=== PATIENT | male | born 1995 | race Caucasian/White ===

== ENCOUNTER 2016-11-14 22:03 | Inpatient (IN) | payer OTHER ==
[~2016-11-14] VITALS: Ht 188 cm; Wt 84.4 kg
[2016-11-14 23:31] LABS: MEAN CORPUSCULAR HGB CONC 34.5 g/dl (32.0-36.5); RED CELL DISTRIBUTION WIDTH 11.9 % (11.5-14.5); WHITE BLOOD COUNT 6.2 K/mm3 (4.0-10.0)
[2016-11-14 23:54] LABS: METHADONE URINE NEGATIVE (NEGATIVE)
[2016-11-15] LABS: ALBUMIN/GLOBULIN RATIO 1.14 (1.00-1.93); ALKALINE PHOSPHATASE 81 U/L (45-117); ALT/SGPT 18 U/L (12-78); ANION GAP 4 MEQ/L (8-16); AST/SGOT 14 U/L (15-37); BILIRUBIN,DIRECT 0.3 MG/DL (0.0-0.2); BILIRUBIN,TOTAL 1.2 MG/DL (0.2-1.0); BLOOD UREA NITROGEN 17 MG/DL (7-18); CALCIUM LEVEL 9.2 MG/DL (8.5-10.1); CARBON DIOXIDE LEVEL 32 MEQ/L (21-32); CHLORIDE LEVEL 105 MEQ/L (98-107); CREATININE FOR GFR 0.96 MG/DL (0.70-1.30); GLUCOSE, FASTING 86 MG/DL (70-105); POTASSIUM SERUM 4.1 MEQ/L (3.5-5.1); SODIUM LEVEL 141 MEQ/L (136-145); TOTAL PROTEIN 7.5 GM/DL (6.4-8.2)
[2016-11-15] MEDS ORDERED: MAALOX 30 ML SUSP *UDC PO PRN (00:45)
[2016-11-15] MEDS ORDERED: traZODone 50 MG TAB PO PRN (00:45)
[2016-11-15] MEDS ORDERED: MOM 30ML SUSPENSION UDC PO PRN (00:45)
[2016-11-15] MEDS ORDERED: ACETAMINOPHEN TAB 650MG DOSE (2X325MG) PO PRN (00:45)
[2016-11-15] MEDS ORDERED: MOBI7.5T10 PO (00:50)
[2016-11-15] MEDS ORDERED: CYCL5TA PO (00:50)
[2016-11-15 01:47] VITALS: BP 136/73
[2016-11-15] MEDS ORDERED: SERTRALINE HCL 50 MG TAB PO SCH (09:00)
--- NOTE | 2016-11-15 10:29 | HPEPDOC ---
Medical History and Physical Date of Admission Nov 15, 2016 at 00:35 History and Physical PCP: [facility] ATTENDING: Dr. Leonard Walls HPI: 21 yo M admitted to [facility] for depression not otherwise specified, being medically examined today. No acute medical complaints today. Patient states he has chronic low back pain however he states his pain is controlled at this time. He denies previous injury. Denies any fevers, chills, weakness, fatigue, VAIL, CP, SOB, cough, palpitations, abdominal pain, N/V/D or changes in bowel or bladder habits. PMHx: Chronic back pain. Controlled Asthma as child History of nasal fracture status post skateboard injury Bilateral ankle fracture. Football injury. Left wrist fracture as child. Right hand fracture 8 status post fall/hitting objects ODD ADD PSHX: EGD 13 years old. Unremarkable per patient. Right knee, metal removed. 08/09 SOCHX: Resides in: [place] Marital Status: Single Kids: None Employment: Active duty Tobacco use: Denies ETOH: Denies Illicit Drugs: Denies IV Drug Use: Denies Tattoos done unprofessionally: Denies FAMHX: Patient is adopted. Adoptive mother. Thyroid cancer Adoptive father. History of anemia Mother: Alive, history of bipolar disorder, substance use Father: Unknown Siblings: 4 half sisters, half brother Alive, history of autism. Children: None Unexpected deaths due to medical reasons: None. ROS: As noted in HPI, otherwise 11pt ROS of systems reviewed and remarkable only for chronic low back pain which she states is controlled. PE: GEN: 21 yo M, appears stated age. Well-nourished, well developed. No acute distress. Alert and oriented x 3. Pleasant, interactive. HEENT: Normocephalic, atraumatic. Pupils are equal, round, and reactive to light. Extraocular movements are intact. No nystagmus appreciated. Sclera are nonicteric. Conjunctiva without injection. Nose midline. Nasal turbinates without bogginess. EACs both patent BL. TMs both visualized and lucio with good cone of light, no bulging or erythema. No facial asymmetry. Moist mucous membranes. Dentition fair. Pharynx pink and moist, no cobblestoning. Neck supple , trachea midline. No lymphadenopathy or thyromegaly appreciated. CHEST: Regular rate and rhythm, +S1, +S2 LUNGS: Clear to auscultation bilaterally. No wheezes, rales, or rhonchi. Breathing appears symmetric and easy. Patient is speaking in full sentences. No accessory muscle use. ABD: Round, soft, non-tender, non-distended. +Bowel sounds throughout. No rebound or guarding. No costovertebral angle tenderness. EXT: Pulses 2+ bilaterally dorsalis pedis and radial. No lower extremity edema appreciated. SKIN: [place], dry, warm. Capillary refill <2sec. No rashes. NEURO: Alert and oriented x 3. Cranial nerves III-XII are intact. No focal deficits appreciated. EKG: Pending. A&P: 21 yo M admitted to [facility] for depression not otherwise specified 1. Psych. Plan per Psychiatry. Obtain baseline EKG to assure the safety of psychiatric medications as they can prolong the QT interval. 2. Chronic low back pain. Medication reconciliation is pending. Confirm doses of Flexeril and Mobic. Continue outpatient regimen. Patient states pain is controlled. Follow up with PCP at discharge. 3.Follow up with PCP on discharge. 4. Staff member Ed present throughout exam. Vital Signs Vital Signs Date Time Temp Pulse Resp B/P Pulse Ox O2 Delivery O2 Flow Rate FiO2 11/15/16 01:47 97.6 53 20 136/73 98 Room Air Laboratory Data Labs 24H Laboratory Tests 2 11/14/16 23:19: Acetaminophen Level < 2.0L, Aspartate Amino Transf (AST/SGOT) 14L, Alanine Aminotransferase (ALT/SGPT) 18, Alkaline Phosphatase 81, Total Bilirubin 1.2H, Direct Bilirubin 0.3H, Albumin 4.0, Albumin/Globulin Ratio 1.14, Anion Gap 4L, Calcium Level 9.2, Ethyl Alcohol Level < 0.003, Salicylates Level < 1.7L, Thyroid Stimulating Hormone (TSH) 2.080, Total Protein 7.5, Urine Amphetamines Screen NEGATIVE, Urine Benzodiazepines Screen NEGATIVE, Urine Opiates Screen NEGATIVE, Urine Barbiturates Screen NEGATIVE, Urine Cannabinoids Screen NEGATIVE , Urine Cocaine Metabolite Screen NEGATIVE, Urine Methadone Screen NEGATIVE, Urine Phencyclidine Screen NEGATIVE CBC/BMP Laboratory Tests 11/14/16 23:19 Red Blood Count 4.92, Mean Corpuscular Volume 84.0, Mean Corpuscular Hemoglobin 29.0, Mean Corpuscular Hemoglobin Concent 34.5, Red Cell Distribution Width 11.9 Home Medications Scheduled Meloxicam (Mobic) 7.5 Mg Tab Unknown Dose PO QHS WITH FOOD Scheduled PRN Cyclobenzaprine HCl (Cyclobenzaprine HCl) 5 Mg Tab Unknown Dose PO QHS PRN PRN MUSCLE SPASMS Allergies Coded Allergies: Iodine (Verified Allergy, Severe, 11/14/16) Shellfish Allergy (Verified Allergy, Severe, 11/14/16) Franci Modi Nov 15, 2016 10:29
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
[2016-11-15 18:00] VITALS: BP 113/60
[2016-11-16 06:41] VITALS: BP 128/67
[2016-11-16] MEDS ORDERED: OXAZEPAM 10 MG CAP PO ONE (16:15)
--- NOTE | 2016-11-16 16:40 | IPNPDOC ---
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 HAM-A: 1- ANXIOUS MOOD Severe [3] 2- TENSION Severe [3] 3- FEARS Mild [1] 4- INSOMNIA Mild [1] 5- INTELLECTUAL Moderate [2] 6- DEPRESSED MOOD Moderate [2] 7- SOMATIC (muscular) Moderate [2] 8- SOMATIC (sensory) Mild [1] 9- CARDIOVASCULAR SYMPTOMS Mild [1] 10- RESPIRATORY SYMPTOMS Not present [0] 11- GASTROINTESTINALS SYMPTOMS Not present [0] 12- GENITOURINARY SYMPTOMS Not present [0] 13- AUTONOMIC SYMPTOMS Not present [0] 14- BEHAVIOUR AT INTERVIEW Moderate [2] ? HAM-A Score (of 56 points possible) 18 HAM-D: DEPRESSED MOOD Absent [0] FEELINGS OF GUILT Ideas of guilt or rumination over past errors or sinful deeds [2] SUICIDE Absent [0] INSOMNIA EARLY Complaints of nightly difficulty falling asleep [2] INSOMNIA MIDDLE No difficulty [0] INSOMNIA LATE No difficulty [0] WORK AND ACTIVITIES Loss of interest in activity hobbies or work [2] RETARDATION: PSYCHOMOTOR Normal speech and thought [0] AGITATION Playing with hands, hair, obvious restlessness [2] ANXIETY: PSYCHOLOGICAL Moderate [2] ANXIETY: SOMATIC Moderate [2] SOMATIC SYMPTOMS: GASTROINTESTINAL None [0] SOMATIC SYMPTOMS: GENERAL Any clear-cut symptom [2] GENITAL SYMPTOMS Absent [0] HYPOCHONDRIASIS Preoccupation with health [2] LOSS OF WEIGHT (rating method) Rating by history LOSS OF WEIGHT (result) No weight loss [0] INSIGHT Acknowledges illness but attributes cause to bad food, overwork, virus, need for rest, etc. [1] PARANOID SYMPTOMS None DIURNAL VARIATION Worse in P.M. Elder the severity of the variation Mild DEPERSONALIZATION AND DEREALIZATION Absent OBSESSIONAL & COMPULSIVE SYMPTOMS Absent ? Score 17 ? Assessment MODERATE DEPRESSION VITAL SIGNS: See below. NEW TEST RESULTS: See below CURRENT MEDICATIONS: See below. MENTAL STATUS EXAMINATION: General: Well dressed with good hygiene Speech: Spontaneous and fluid Thought processes: Linear and logical Thought content: Perseverates on anxiety and somatic symptoms Abstract reasoning, and computation: Intact Description of associations: Intact Description of abnormal or psychotic thoughts:Denies any suicidal or homicidal ideation. Denies any auditory or visual hallucinations. Does not appear to be responding to internal stimuli. Does not appear to be endorsing any bizarre or paranoid ideation. Judgment: Fair Insight: Improving Orientation: Alert and orientated 3 Recent and remote memory: Intact Attention span and concentration: Intact Fund of knowledge: Adequate Mood: "Bad" Affect: Anxious and dysphoric DIAGNOSES: 1. PTSD, acute. 2. Borderline personality disorder. ASSESSMENT: Improving MANAGEMENT PLAN: Medications: Start oxazepam 10 mg every 4 hours as needed for anxiety with 1 dose now Psychotherapy: Encourage group attendance Social: IOP for outpatient Misc: Emails liaison about med board process for patient as he was interested in knowing how that might go about Disposition: The patient will need of further inpatient stay to address severe anxiety and medication titration. TIME SPENT: 25 minutes. Vital Signs Vital Signs Date Time Temp Pulse Resp B/P (MAP) Pulse Ox O2 Delivery O2 Flow Rate FiO2 11/16/16 08:47 Room Air 11/16/16 06:41 99.9 57 18 128/67 (87) 11/15/16 01:47 98 Current Medications Current Medications Acetaminophen (Tylenol Tab) 650 mg Q6HP PRN PO HEADACHE or DISCOMFORT; Start at 00:45; Stop 12/15/16 at 00:44 Al Hydrox/Mg Hydrox/Simethicone (Mylanta) 30 ml Q4HP PRN PO HEARTBURN/ INDIGESTION; Start 11/15/16 at 00:45; Stop 12/15/16 at 00:44 Home Med (Med Rec Complete!) ASDIRECTED XX ; Start 11/15/16 at 01:00; Stop at 01:28; Status DC Magnesium Hydroxide (Milk Of Magnesia) 30 ml DAILYPRN PRN PO CONSTIPATION; Start 11/15/16 at 00:45; Stop 12/15/16 at 00:44 Oxazepam (Serax) 10 mg Q4HP PRN PO anxiety, agitation, insomnia; Start at 16:15; Stop 11/23/16 at 16:14 Sertraline HCl (Zoloft) 50 mg DAILY PO ; Start 11/15/16 at 09:00; Stop 11/15/16 at 15:05; Status DC Trazodone HCl (Desyrel) 50 mg QHSP PRN PO INSOMNIA; Start 11/15/16 at 00:45; Stop 12/15/16 at 00:44 Allergies Coded Allergies: Iodine (Verified Allergy, Severe, 11/14/16) Shellfish Allergy (Verified Allergy, Severe, 11/14/16) GME ATTESTATION My preceptor for this patient encounter was physically present in the building during the encounter and was fully available. As needed, all aspects of the patient interview, examination, medical decision making process, and medical care plan development were reviewed and approved by the preceptor. Preceptor is aware and concurs with the plan as stated in the body of this note and will attest to such by his/her cosignature. AAYUSH BOOTH DO Nov 16, 2016 16:40
[2016-11-16 18:00] VITALS: BP 138/69
[2016-11-16] MEDS: OXAZEPAM 10 MG CAP PO PRN (21:33)
[2016-11-17 06:44] VITALS: BP 137/63
[2016-11-17] MEDS: OXAZEPAM 10 MG CAP PO PRN ×3 (08:56→20:50)
--- NOTE | 2016-11-17 17:15 | IPNPDOC ---
[facility] Progress Note Progress Note DATE OF SERVICE: 11/17/16 INTERVAL HISTORY: Medication Side effects: Reports no side effects on the oxazepam Behavior/events: Has been attending groups more frequently and is noted to be more sociable on the medrano Group Attendance: More group attendance than yesterday Psychiatric Symptoms: HAM-A: 1- ANXIOUS MOOD Severe [3] 2- TENSION Moderate [2] 3- FEARS Severe [3] 4- INSOMNIA Moderate [2] 5- INTELLECTUAL Moderate [2] 6- DEPRESSED MOOD Moderate [2] 7- SOMATIC (muscular) Moderate [2] 8- SOMATIC (sensory) Not present [0] 9- CARDIOVASCULAR SYMPTOMS Mild [1] 10- RESPIRATORY SYMPTOMS Mild [1] 11- GASTROINTESTINALS SYMPTOMS Not present [0] 12- GENITOURINARY SYMPTOMS Not present [0] 13- AUTONOMIC SYMPTOMS Moderate [2] 14- BEHAVIOUR AT INTERVIEW Severe [3] ? HAM-A Score (of 56 points possible) 23 HAM-D: DEPRESSED MOOD Occasional weeping [2] FEELINGS OF GUILT Present illness is punishment [3] SUICIDE Feels life is not worth living [1] INSOMNIA EARLY Complaints of occasional difficulty in falling asleep i.e. more than half-hour [1] INSOMNIA MIDDLE No difficulty [0] INSOMNIA LATE No difficulty [0] WORK AND ACTIVITIES Loss of interest in activity hobbies or work [2] RETARDATION: PSYCHOMOTOR Normal speech and thought [0] AGITATION Hand wringing, nail biting, hair pulling, biting of lips, patient is on the run [4] ANXIETY: PSYCHOLOGICAL Severe [3] ANXIETY: SOMATIC Moderate [2] SOMATIC SYMPTOMS: GASTROINTESTINAL None [0] SOMATIC SYMPTOMS: GENERAL Heaviness in limbs, back or head; backaches, headaches , muscle aches, fatigability [1] GENITAL SYMPTOMS Absent [0] HYPOCHONDRIASIS Self-absorption (bodily) [1] LOSS OF WEIGHT (rating method) Rating by history LOSS OF WEIGHT (result) No weight loss [0] INSIGHT Acknowledges being depressed and ill [0] PARANOID SYMPTOMS Suspicious DIURNAL VARIATION Worse in P.M. Elder the severity of the variation Mild DEPERSONALIZATION AND DEREALIZATION Absent OBSESSIONAL & COMPULSIVE SYMPTOMS Absent ? Score 20 ? Assessment SEVERE DEPRESSION VITAL SIGNS: See below. NEW TEST RESULTS: See below CURRENT MEDICATIONS: See below. MENTAL STATUS EXAMINATION: General: Well dressed with good hygiene Speech: Spontaneous and fluid Thought processes: Coherent Thought content: Perseveration on stress and anxiety Abstract reasoning, and computation: Intact Description of associations: Intact Description of abnormal or psychotic thoughts:Denies any overt suicidal or homicidal ideation. Denies any auditory or visual hallucinations. Does not appear to be responding to internal stimuli. Does not appear to be endorsing any bizarre or paranoid ideation. Judgment: Poor Insight: Poor Orientation: Alert and orientated 3 Recent and remote memory: Intact Attention span and concentration: Intact Fund of knowledge: Adequate Mood: "Horrible" Affect: Anxious and weeping DIAGNOSES: 1. PTSD, acute. 2. Borderline personality disorder. ASSESSMENT: Some benefit for the oxazepam as a when necessary for controlling anxiety, however stressor situation of the appears to decompensate the patient significantly. He has chain of command meeting tomorrow of which she is fairly anxious about due to his reported chain commands reactivity. MANAGEMENT PLAN: Medications: Continue oxazepam, discussed with patient other medications however due to previous trials and poor effects he is going to except risk of benefits of other medicines at this time Psychotherapy: Encourage group attendance Social: Chain of command meeting tomorrow Misc: None Disposition: The patient will need of further inpatient stay to address severe depression and anxiety. TIME SPENT: 30 minutes. Vital Signs Vital Signs Date Time Temp Pulse Resp B/P (MAP) Pulse Ox O2 Delivery O2 Flow Rate FiO2 11/17/16 06:44 98.3 84 20 137/63 (87) 11/16/16 18:00 Room Air 11/15/16 01:47 98 Current Medications Current Medications Acetaminophen (Tylenol Tab) 650 mg Q6HP PRN PO HEADACHE or DISCOMFORT; Start at 00:45; Stop 12/15/16 at 00:44 Al Hydrox/Mg Hydrox/Simethicone (Mylanta) 30 ml Q4HP PRN PO HEARTBURN/ INDIGESTION; Start 11/15/16 at 00:45; Stop 12/15/16 at 00:44 Home Med (Med Rec Complete!) ASDIRECTED XX ; Start 11/15/16 at 01:00; Stop at 01:28; Status DC Magnesium Hydroxide (Milk Of Magnesia) 30 ml DAILYPRN PRN PO CONSTIPATION; Start 11/15/16 at 00:45; Stop 12/15/16 at 00:44 Oxazepam (Serax) 10 mg Q4HP PRN PO anxiety, agitation, insomnia Last administered on 11/17/16t 13:15; Start 11/16/16 at 16:15; Stop 11/23/16 at 16:14 Sertraline HCl (Zoloft) 50 mg DAILY PO ; Start 11/15/16 at 09:00; Stop 11/15/16 at 15:05; Status DC Trazodone HCl (Desyrel) 50 mg QHSP PRN PO INSOMNIA; Start 11/15/16 at 00:45; Stop 12/15/16 at 00:44 Allergies Coded Allergies: Iodine (Verified Allergy, Severe, 11/14/16) Shellfish Allergy (Verified Allergy, Severe, 11/14/16) GME ATTESTATION My preceptor for this patient encounter was physically present in the building during the encounter and was fully available. As needed, all aspects of the patient interview, examination, medical decision making process, and medical care plan development were reviewed and approved by the preceptor. Preceptor is aware and concurs with the plan as stated in the body of this note and will attest to such by his/her cosignature. AAYUSH OBOTH DO Nov 17, 2016 17:15
[2016-11-17 18:00] VITALS: BP 139/63
[2016-11-18 07:07] VITALS: BP 141/63
[2016-11-18] MEDS: OXAZEPAM 10 MG CAP PO PRN ×2 (09:04→17:52)
--- NOTE | 2016-11-18 17:01 | IPNPDOC ---
[facility] Progress Note Progress Note DATE OF SERVICE: 11/18/16 INTERVAL HISTORY: Medication Side effects: Reports no side effects from the Serax Behavior/events: Has been somewhat reclusive to his room sleeping during the day after chain of command meeting earlier. Describes that his chain of command meeting went "bad" but then her paradoxically describes how he feels more ease knowing bare position on his behavior Group Attendance: He has not attended groups today Psychiatric Symptoms: HAM-A: 1- ANXIOUS MOOD Moderate [2] 2- TENSION Mild [1] 3- FEARS Mild [1] 4- INSOMNIA Mild [1] 5- INTELLECTUAL Mild [1] 6- DEPRESSED MOOD Mild [1] 7- SOMATIC (muscular) Not present [0] 8- SOMATIC (sensory) Not present [0] 9- CARDIOVASCULAR SYMPTOMS Not present [0] 10- RESPIRATORY SYMPTOMS Not present [0] 11- GASTROINTESTINALS SYMPTOMS Not present [0] 12- GENITOURINARY SYMPTOMS Not present [0] 13- AUTONOMIC SYMPTOMS Not present [0] 14- BEHAVIOUR AT INTERVIEW Mild [1] ? HAM-A Score (of 56 points possible) 8 HAM-D: DEPRESSED MOOD Gloomy attitude, pessimism, hopelessness [1] FEELINGS OF GUILT Self-reproach, feels he/she has let people down [1] SUICIDE Absent [0] INSOMNIA EARLY No difficulty falling asleep [0] INSOMNIA MIDDLE No difficulty [0] INSOMNIA LATE No difficulty [0] WORK AND ACTIVITIES Stopped working because of present illness. [4] RETARDATION: PSYCHOMOTOR Slight retardation at interview [1] AGITATION None [0] ANXIETY: PSYCHOLOGICAL Mild [1] ANXIETY: SOMATIC Absent [0] SOMATIC SYMPTOMS: GASTROINTESTINAL None [0] SOMATIC SYMPTOMS: GENERAL None [0] GENITAL SYMPTOMS Absent [0] HYPOCHONDRIASIS Not present [0] LOSS OF WEIGHT (rating method) Rating by history LOSS OF WEIGHT (result) No weight loss [0] INSIGHT Acknowledges being depressed and ill [0] PARANOID SYMPTOMS Suspicious DIURNAL VARIATION No variation DEPERSONALIZATION AND DEREALIZATION Absent OBSESSIONAL & COMPULSIVE SYMPTOMS Absent ? Score 8 ? Assessment MILD DEPRESSION VITAL SIGNS: See below. NEW TEST RESULTS: See below CURRENT MEDICATIONS: See below. MENTAL STATUS EXAMINATION: General: Well dressed with good hygiene Speech: Spontaneous and fluid Thought processes: Linear Thought content: Perseverates on chain of command and feelings of anger Abstract reasoning, and computation: Intact Description of associations: Intact Description of abnormal or psychotic thoughts:Denies any suicidal or homicidal ideation. Denies any auditory or visual hallucinations. Does not appear to be responding to internal stimuli. Does not appear to be endorsing any bizarre or paranoid ideation. Judgment: Fair Insight: Poor, but improving Orientation: Alert and orientated 3 Recent and remote memory: Intact Attention span and concentration: Intact Fund of knowledge: Adequate Mood: "Fine" Affect: Mildly dysthymic DIAGNOSES: 1. PTSD, chronic. 2. Borderline personality disorder. ASSESSMENT: Improving MANAGEMENT PLAN: Medications: Continue Serax Psychotherapy: Encourage group attendance, encourage use of coping skills through journaling Social: Chain of command meeting was today and appeared to help the patient understand his chain of command's point of view, patient is interested in discharge on Monday as he feels as though he's got the maximum benefit from his stay Misc: Gave patient handout on borderline personality disorder as he requested it Disposition: The patient will need of further inpatient stay to address disposition issues and medication titration. TIME SPENT: minutes. Vital Signs Vital Signs Date Time Temp Pulse Resp B/P (MAP) Pulse Ox O2 Delivery O2 Flow Rate FiO2 11/18/16 07:07 98.1 64 14 141/63 (89) 11/17/16 18:00 Room Air 11/15/16 01:47 98 Current Medications Current Medications Acetaminophen (Tylenol Tab) 650 mg Q6HP PRN PO HEADACHE or DISCOMFORT; Start at 00:45; Stop 12/15/16 at 00:44 Al Hydrox/Mg Hydrox/Simethicone (Mylanta) 30 ml Q4HP PRN PO HEARTBURN/ INDIGESTION; Start 11/15/16 at 00:45; Stop 12/15/16 at 00:44 Home Med (Med Rec Complete!) ASDIRECTED XX ; Start 11/15/16 at 01:00; Stop at 01:28; Status DC Magnesium Hydroxide (Milk Of Magnesia) 30 ml DAILYPRN PRN PO CONSTIPATION; Start 11/15/16 at 00:45; Stop 12/15/16 at 00:44 Oxazepam (Serax) 10 mg Q4HP PRN PO anxiety, agitation, insomnia Last administered on 11/18/16t 09:04; Start 11/16/16 at 16:15; Stop 11/23/16 at 16:14 Sertraline HCl (Zoloft) 50 mg DAILY PO ; Start 11/15/16 at 09:00; Stop 11/15/16 at 15:05; Status DC Trazodone HCl (Desyrel) 50 mg QHSP PRN PO INSOMNIA Last administered on t 22:30; Start 11/15/16 at 00:45; Stop 12/15/16 at 00:44 Allergies Coded Allergies: Iodine (Verified Allergy, Severe, 11/14/16) Shellfish Allergy (Verified Allergy, Severe, 11/14/16) GME ATTESTATION My preceptor for this patient encounter was physically present in the building during the encounter and was fully available. As needed, all aspects of the patient interview, examination, medical decision making process, and medical care plan development were reviewed and approved by the preceptor. Preceptor is aware and concurs with the plan as stated in the body of this note and will attest to such by his/her cosignature. AAYUSH BOOTH DO Nov 18, 2016 17:01
[2016-11-18 18:00] VITALS: BP 134/64
[2016-11-19 06:27] VITALS: BP 128/58
[2016-11-19 18:00] VITALS: BP 135/61
[2016-11-19] MEDS: OXAZEPAM 10 MG CAP PO PRN (20:03)
[2016-11-20 06:53] VITALS: BP 134/61
[2016-11-20] MEDS: OXAZEPAM 10 MG CAP PO PRN ×2 (15:21→21:29)
--- NOTE | 2016-11-20 15:37 | IPN ---
DATE: 11/19/2016 SUBJECTIVE: The patient states how the [employer] stressed him, that the [employer] has taken numerous actions against him, how that when he was in [place], they constantly called him about disciplinary actions, and at that time he tried to jump off the balcony at [facility]. When they came back, his girlfriend drove him here. He is hoping to be discharged Monday. He feels he will be med-boarded. His chain of command meeting did not go well. A jeanette told him that they would chapter him out. He states they will probably use his hospitalization here as part of a reason to chapter him out. He discusses how he once fell asleep on Flexeril and how his haircut was not correct, how he had to write essays using different colored pens , and he states, "My company doesn't care." The patient's speech is normal. No disturbance of thought processes. No loose associations. No abnormal or psychotic thoughts. Judgment and insight are fair. He is fully oriented. Remote and recent memory are intact. No disturbance of attention and concentration. No disturbance of language. Full fund of knowledge. Mood is neutral. Affect is tense Diagnosis as per Dr. Tejeda. [facility]
[2016-11-20 18:00] VITALS: BP 153/71
[2016-11-21 06:14] VITALS: BP 138/72
[2016-11-21] MEDS ORDERED: OXAZ10CA PO (11:48)
--- NOTE | 2016-11-21 15:56 | DS.PDOC ---
[facility] Discharge Summary Discharge Summary DATE OF ADMISSION: Nov 15, 2016 at 00:35 DATE OF DISCHARGE: November 21, 2016 at 12:45 DISCHARGE DIAGNOSES: 1. Borderline personality disorder. 2. PTSD, chronic. REASON FOR ADMISSION: The patient is admitted due to suicidal ideation and a recent suicide attempt several days before presenting to the ED CONSULTANTS INVOLVED: None TREATMENT AND PROGRESS ON THE UNIT : Legal status on admission: 9.39 Medication Management: After great discussion the patient generally refused most medication categories including antidepressants and antipsychotics and mood stabilizers due to previous severe adverse side effects. After much informed consent is decided small dose of oxazepam could be helpful for stabilizing the patient's anxiety. He was tried on 10 mg every 4 hours need for anxiety and did well area and his mood became more stable as anxiety became more controllable. He was told that only a small supply be given to him as an outpatient and it would be unlikely that it would be continued by [facility]. He was told that he would need to use this only in emergency cases when his anxiety was completely uncontrollable. He was additionally told that he would need to cultivate coping skills in order to effectively deal with his anxiety as outpatient. Psychotherapy: The patient engaged in groups intermittently Behavior: At first he was generally suspicious and guarded. He became more open but then began to demonstrate some splitting behavior, and over generalized thoughts. Discharge planning: The patient after a chain of command meeting on the Monday before discharge appeared to gain some insight into his situation. He decided after reading about borderline personality disorder and understanding his need for coping skills that he wanted to try to engage in outpatient treatment as he had been referred to the [facility] on [place]. Outpatient recommendations: Recommend referral to [facility] Pending studies on discharge: None DISCHARGE ASSESSMENT: 21-year-old male with a long history of trauma with traits and characteristics consistent of the borderline/PTSD spectrum. He has poor ability to cope with stressors and would likely benefit from DBT or related therapies. MENTAL STATUS EXAMINATION ON DISCHARGE: General: Well dressed with good hygiene Speech: Spontaneous and fluid Thought processes: Linear and logical Thought content: Future orientated Abstract reasoning, and computation: Intact Description of associations: Intact Description of abnormal or psychotic thoughts:Denies any suicidal or homicidal ideation. Denies any auditory or visual hallucinations. Does not appear to be responding to internal stimuli. Does not appear to be endorsing any bizarre or paranoid ideation. Judgment: Fair Insight: Fair Orientation: Alert and orientated 3 Recent and remote memory: Intact Attention span and concentration: Intact Fund of knowledge: Adequate Mood: "Okay" Affect: Euthymic with a full range PLAN/FOLLOWUP ARRANGEMENTS: Follow-up with IOP at [place] and [facility] for safety check. The social work team worked during the predischarge meeting in order to evaluate for further issues of lethality address them fully before discharge. They worked on safety planning with the patient's family members in order to ensure that the patient will have a safe and effective discharge. The amount of time spent in the coordination of care for this patient was approximately 30 minutes. Vital Signs/I&Os Vital Signs Date Time Temp Pulse Resp B/P (MAP) Pulse Ox O2 Delivery O2 Flow Rate FiO2 11/21/16 06:14 97.5 67 20 138/72 (94) Room Air 11/15/16 01:47 98 Medications Scheduled Meloxicam (Mobic) 7.5 Mg Tab, Unknown Dose PO QHS, (Reported) WITH FOOD Scheduled PRN Oxazepam (Oxazepam) 10 Mg Cap, 10 MG PO Q4HP PRN for severe anxiety, #10 Allergies Coded Allergies: Iodine (Verified Allergy, Severe, 11/14/16) Shellfish Allergy (Verified Allergy, Severe, 11/14/16) GME ATTESTATION My preceptor for this patient encounter was physically present in the building during the encounter and was fully available. As needed, all aspects of the patient interview, examination, medical decision making process, and medical care plan development were reviewed and approved by the preceptor. Preceptor is aware and concurs with the plan as stated in the body of this note and will attest to such by his/her cosignature. AAYUSH BOOTH DO November 21, 2016 15:55
== END 2016-11-21 12:45 | disposition home or self-care (01) | DRG 883 ==
LOC: M ED 23:09 → M ED INP 11-15 00:35 → M PSY 11-15 01:45
PROVIDERS: ADMIT Psychiatry & Neurology Child & Adolescent Psychiatry; ATTEND Psychiatry & Neurology Psychiatry
DX: F60.3 Borderline personality disorder (principal); F43.10 Post-traumatic stress disorder, unspecified; Z91.013 Allergy to seafood; Z88.8 Allergy status to other drugs, medicaments and biological substances; M54.5 Low back pain; Z79.899 Other long term (current) drug therapy

== ENCOUNTER 2016-12-22 13:26 | Emergency (ER) | payer OTHER ==
[~2016-12-22] VITALS: Ht 185.4 cm; Wt 83.9 kg
[~2016-12-22 13:26] MED LIST: CYCL5TA PO; MOBI7.5T10 PO; OXAZ10CA PO
[2016-12-22] MEDS ORDERED: predniSONE 20 MG TAB PO ONE (14:15)
[2016-12-22] MEDS: KETOROLAC 60 MG/2 ML VIAL (J1885) IM ONE ×2 (14:29→14:30)
[2016-12-22 15:50] VITALS: BP 139/66
== END 2016-12-22 16:07 | disposition home or self-care (01) ==
LOC: EDBD 13:26 → M ED 14:28
DX: T78.40XA Allergy, unspecified, initial encounter (principal); L29.9 Pruritus, unspecified; R21 Rash and other nonspecific skin eruption
CPT/HCPCS: 96372; 99284; J1885

== ENCOUNTER 2017-01-24 19:00 | Emergency (ER) | payer OTHER, SELFPAY ==
[~2017-01-24] VITALS: Ht 188 cm; Wt 80.9 kg
[~2017-01-24 19:00] MED LIST changes: -CYCL5TA PO; +CYCL5TAB PO; +MOBI4TAB PO; -MOBI7.5T10 PO; -OXAZ10CA PO; +OXAZ10CA3 PO
[2017-01-24 20:11] LABS: MEAN CORPUSCULAR HEMOGLOBIN 29.7 pg (27.0-33.0); MEAN CORPUSCULAR HGB CONC 34.3 g/dl (32.0-36.5); MEAN CORPUSCULAR VOLUME 86.5 fl (80.0-96.0); RED CELL DISTRIBUTION WIDTH 12.5 % (11.5-14.5); WHITE BLOOD COUNT 7.4 K/mm3 (4.0-10.0)
[2017-01-24 20:34] LABS: METHADONE URINE NEGATIVE (NEGATIVE)
[2017-01-24 20:42] LABS: ALBUMIN 4.3 GM/DL (3.2-5.2); ALBUMIN/GLOBULIN RATIO 1.26 (1.00-1.93); ALKALINE PHOSPHATASE 60 U/L (45-117); ALT/SGPT 16 U/L (12-78); ANION GAP 6 MEQ/L (8-16); AST/SGOT 10 U/L (15-37); BILIRUBIN,DIRECT 0.4 MG/DL (0.0-0.2); BILIRUBIN,TOTAL 1.8 MG/DL (0.2-1.0); BLOOD UREA NITROGEN 14 MG/DL (7-18); CALCIUM LEVEL 9.2 MG/DL (8.5-10.1); CARBON DIOXIDE LEVEL 29 MEQ/L (21-32); CHLORIDE LEVEL 106 MEQ/L (98-107); CREATININE FOR GFR 0.97 MG/DL (0.70-1.30); GLUCOSE, FASTING 92 MG/DL (70-105); POTASSIUM SERUM 4.3 MEQ/L (3.5-5.1); SODIUM LEVEL 141 MEQ/L (136-145); TOTAL PROTEIN 7.7 GM/DL (6.4-8.2)
[2017-01-24 23:43] VITALS: BP 127/71
--- NOTE | 2017-01-24 23:53 | ECGEPIP ---
Stationary ECG Study [facility] - ED Test Date: 2017-01-24 Pat Name: HEIKE DE LEÓN Department: Room: - Gender: M [employer] Mechanic: : [id number] Requested By: Alfredo Angulo Order Number: [id number] Reading MD: Alfredo Sanchez Measurements Intervals [place] Rate: 46 P: 46 CT: 147 QRS: 69 QRSD: 98 T: 14 QT: 416 QTc: 367 Interpretive Statements SINUS BRADYCARDIA NSTTW ABNORMALITIES NO PRIORS Electronically Signed On 01-24-2017 23:52:53 EDT by Alfredo Sanchez
== END 2017-01-24 23:52 ==
LOC: M ED 19:00
DX: F32.9 Major depressive disorder, single episode, unspecified (principal); R45.851 Suicidal ideations
CPT/HCPCS: 80048; 80076; 80307; 84443; 85027; 93005; 99285; G0480

== ENCOUNTER 2017-01-26 17:49 | Emergency (ER) | payer SELFPAY ==
[~2017-01-26] VITALS: Ht 188 cm; Wt 82.3 kg
[2017-01-26 19:18] VITALS: BP 147/76
== END 2017-01-26 19:21 | disposition home or self-care (01) ==
LOC: M ED 17:49
DX: F43.0 Acute stress reaction (principal); F17.210 Nicotine dependence, cigarettes, uncomplicated

== ENCOUNTER 2017-02-16 15:58 | Emergency (ER) | payer SELFPAY ==
[~2017-02-16] VITALS: Ht 188 cm; Wt 81.8 kg
[2017-02-16 17:25] LABS: MEAN CORPUSCULAR HEMOGLOBIN 29.9 pg (27.0-33.0); MEAN CORPUSCULAR HGB CONC 35.6 g/dl (32.0-36.5); MEAN CORPUSCULAR VOLUME 84.1 fl (80.0-96.0); RED CELL DISTRIBUTION WIDTH 11.9 % (11.5-14.5)
[2017-02-16 17:45] LABS: METHADONE URINE NEGATIVE (NEGATIVE)
[2017-02-16 17:57] LABS: ALBUMIN 4.3 GM/DL (3.2-5.2); ALKALINE PHOSPHATASE 69 U/L (45-117); ALT/SGPT 24 U/L (12-78); ANION GAP 6 MEQ/L (8-16); AST/SGOT 25 U/L (15-37); BILIRUBIN,DIRECT 0.3 MG/DL (0.0-0.2); BILIRUBIN,TOTAL 1.1 MG/DL (0.2-1.0); BLOOD UREA NITROGEN 9 MG/DL (7-18); CALCIUM LEVEL 9.2 MG/DL (8.5-10.1); CARBON DIOXIDE LEVEL 29 MEQ/L (21-32); CHLORIDE LEVEL 104 MEQ/L (98-107); CREATININE FOR GFR 0.99 MG/DL (0.70-1.30); GLUCOSE, FASTING 95 MG/DL (70-105); POTASSIUM SERUM 4.1 MEQ/L (3.5-5.1); SODIUM LEVEL 139 MEQ/L (136-145); TOTAL PROTEIN 8.2 GM/DL (6.4-8.2)
[2017-02-16 19:12] VITALS: BP 142/80
== END 2017-02-16 19:13 | disposition home or self-care (01) ==
LOC: M ED 15:58
DX: F43.0 Acute stress reaction (principal)
CPT/HCPCS: 80048; 80076; 80307; 84443; 85027; 99284; G0480